=== PATIENT | male | born 1995 | race Caucasian/White ===

== ENCOUNTER 2024-10-29 12:59 | Day surgery (SDC) | payer BC, SELFPAY ==
[2024-10-29 11:13] VITALS: BP 127/75
[2024-10-29 11:46] VITALS: BMI 27.3
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
[2024-10-29] MEDS: ANCEF 10 IV (12:54)
[2024-10-29 13:01] VITALS: BP 113/71
[2024-10-29 13:17] LABS: Hematocrit 40.7 % (39.0-52.0); Hemoglobin 14.7 g/dL (13.0-18.0); Mean Corp Hgb Conc. 36.1 g/dL (33.0-37.0); Mean Corpuscular Volume 85.5 fL (80.0-94.0); Platelet Count 241 10^3/uL (130-400); Red Cell Dist. Width 11.9 % (11.5-14.5)
[2024-10-29 14:43] LABS: INR 0.96; PT 13.1 Sec (11.4-14.6)
[2024-10-29 15:27] VITALS: BP 149/85; BMI 28.0
--- NOTE | 2024-10-29 15:34 | W.PN.UPDATE ---
Update Note
Progress Note Update
Patient seen and evaluated. Chart and imaging reviewed.
Patient 29-year-old male with open left both bone forearm fracture
Did have of long discussion the patient regarding diagnosis and treatment options. We discussed with surgical nonsurgical options. After discussion we mutually elected to proceed with surgical intervention. We discussed risks benefits and
alternatives to surgery. We discussed the usual expected perioperative postoperative course. No guarantees were given. Specifically we discussed the elevated risk of infection given open nature of his wounds.
Plan 4 OR tomorrow morning for irrigation debridement, ORIF left both bone forearm fracture pending OR availability and medical clearance
Nonweightbearing left upper extremity
N.p.o. midnight
Please hold anticoagulation preparation for OR
Continue IV antibiotics given open nature of wounds
Tetanus updated
Please reach out with questions or concerns
Formal consult note to follow
[2024-10-29] MEDS: TYLENOL 650 MG PO ×3 (15:42→23:16)
[2024-10-29] MEDS: COLACE 100 MG PO (19:39)
[2024-10-29] MEDS: SENOKOT 17.2 MG PO (19:39)
[2024-10-29] MEDS: ANCEF 5 IV (19:39)
[2024-10-29 23:00] VITALS: BP 109/71
[2024-10-30] VITALS (10 sets, daily range): BP systolic 105–129; BP diastolic 58–81
[2024-10-30] MEDS: TYLENOL PO ×3 (03:17→23:17)
[2024-10-30] MEDS: ANCEF 5 IV (03:23)
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
[2024-10-30] MEDS: TYLENOL 650 MG PO ×3 (07:31→19:21)
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
--- NOTE | 2024-10-30 08:48 | CM ---
CM reviewed chart. Pt has no skilled needs noted at this time.
Please consult CM/SW should discharge planning needs change.
Pt responsible for securing transport home at me.
CM/SW will continue to follow to ensure a safe and timely discharge.
[2024-10-30] MEDS: COLACE PO ×2 (11:14→19:21)
[2024-10-30] MEDS: NSS 1000 IV ×2 (11:14→21:00)
[2024-10-30] MEDS: SENOKOT PO ×2 (11:14→19:21)
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
[2024-10-30] MEDS: ANCEF 10 IV ×2 (13:56→21:00)
[2024-10-31 03:00] VITALS: BP 113/69
[2024-10-31] MEDS: TYLENOL PO (03:06)
[2024-10-31] MEDS: NSS 1000 IV (06:01)
[2024-10-31 07:07] LABS: Hematocrit 34.6 % (39.0-52.0); Hemoglobin 12.5 g/dL (13.0-18.0); Mean Corp Hgb Conc. 36.1 g/dL (33.0-37.0); Mean Corpuscular Volume 86.7 fL (80.0-94.0); Platelet Count 220 10^3/uL (130-400); Red Cell Dist. Width 12.1 % (11.5-14.5)
[2024-10-31 07:32] LABS: Blood Urea Nitrogen 12 mg/dl (9-20); Calcium 8.2 mg/dl (8.4-10.2); Carbon Dioxide 23 mmol/L (22-30); Chloride 111 mmol/L (98-107); Estimated Creatinine Clearance > 125 ml/min; Glucose 128 mg/dl (70-99); Potassium 4.1 mmol/L (3.5-5.1); Sodium 139 mmol/L (135-145); eGFR > 60.00
[2024-10-31 07:35] VITALS: BP 114/66
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
[2024-10-31] MEDS: COLACE 100 MG PO (08:59)
[2024-10-31] MEDS: SENOKOT 17.2 MG PO (09:00)
[2024-10-31] MEDS: TYLENOL 650 MG PO ×2 (09:00→12:16)
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
[2024-10-31 11:19] VITALS: BP 133/72
--- NOTE | 2024-10-31 11:55 | W.PN.ORTHO ---
Today's Communication / Plan
-
29 yo M POD 1 s/p I and D, ORIF left open BBFF
NWB LUE in splint
Pain control
24 hrs IV Ancef completed
Pain control
Plan to follow up with myself outpatient in 10-14 days for repeat clinical assessment, removal of sutures, wound check
Please reach out with questions or concerns
Subjective
.
.:
Patient resting comfortably in chair. No acute overnight events.
Vital Signs and Labs
.
Vital Signs and Labs:
Lab Results
10/31/24 06:51
10/31/24 06:51
Temp Pulse Resp BP Pulse Ox
98.5 F 90 17 133/72 96
10/31/24 11:19 10/31/24 11:19 10/31/24 11:19 10/31/24 11:19 10/31/24 11:19
PT 13.1 Sec (11.4-14.6) 10/29/24 14:27
INR 0.96 10/29/24 14:27
Physical Exam
-
MSK LUE
Splint in place
Exposed digits warm, sensate and mobile
No reproducible pain with passive stretch of digits
BCR
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
== END 2024-10-31 13:30 | disposition home or self-care (01) ==
LOC: PACU 12:59
PROVIDERS: Internal Medicine; Physician Assistant; CONSULT PHYSICIAN Orthopaedic Surgery; EMERGENCY PHYSICIAN Emergency Medicine
DX: S52.302B Unspecified fracture of shaft of left radius, initial encounter for open fracture type I or II (principal); S52.202B Unspecified fracture of shaft of left ulna, initial encounter for open fracture type I or II; V18.4XXA Pedal cycle driver injured in noncollision transport accident in traffic accident, initial encounter; Y93.55 Activity, bike riding
CPT/HCPCS: 25575; C1713; 73090; 76000; 80048; 85027; 85610; 90471; 96374; 99284